=== PATIENT | female | born 1970 | race Caucasian/White ===

== ENCOUNTER 2019-09-11 17:44 | Emergency (ER) | payer OTHER, SELFPAY ==
--- NOTE | ~2019-09-11 | XR_ITS ---
XR finger 3rd RT min 2V 09/11/2019 18:10 Indication: Right third finger pain Procedure: 4 views right third finger Comparison: No prior studies for comparison. Findings: There is a fracture of the right third distal phalangeal tuft with ventral displacement. Th ere is soft tissue swelling. No foreign bodies. No other fracture. Impression: 1: Fracture right third distal phalangeal tuft with ventral displacement. Reviewed, dictated and finalized at location A. Impression: 1: Fracture right third distal phalangeal tuft with ventral displacement.
[2019-09-11 17:48] VITALS: BP 123/88; PULSE 117; RESP 18; TEMP 36.2; O2SAT 96
[2019-09-11] MEDS: ceFAZolin SODIUM 1 GM VIAL IM (18:22)
[2019-09-11] MEDS: TETANUS,DIPHTHERIA,AC PERTUSSIS ADULT (0.5 ML) BOOSTRIX IM (18:22)
--- NOTE | 2019-09-11 19:29 | ED.GENADULT ---
HPI - General Adult General Chief complaint: Wound/Laceration Stated complaint: hand vs power window Time Seen by Provider: 09/11/19 17:57 Source: patient and family Mode of arrival: ambulatory Limitations: no limitations History of Present Illness HPI narrative: Patient is a 48-year-old female who presents with partial amputation of the distal phalanx of the right middle finger occurred just prior to arrival had the finger caught in a window at the time patient notes moderate aching pain upon presentation notes her tetanus not to be up-to-date patient notes moderate aching pain worse with touch and activity denies radicular symptoms or paresthesias denies other injuries or complaints is noted and is resting in the room in mild pain distress upon arrival Related Data Allergies Allergy/AdvReac Type Severity Reaction Status Date / Time Penicillins Allergy Mild RASH Verified 09/11/19 17:45 Review of Systems Review of Systems: All systems reviewed & are unremarkable except as noted in HPI and below PMFSH Social History Social History Gender identity (if verbalized by the patient): Female Exam Narrative: Exam Narrative: GENERAL: Well-appearing, well-nourished, and in no acute distress. HEAD: Normocephalic, atraumatic. EYES: PERRLA and EOMI. ENT: Nares clear, no rhinorrhea or epistaxis. Mucous membranes moist. EXTREMITIES: Normal range of motion. No edema. Partial amputation of the distal phalanx right middle digit SKIN: Warm, dry, no rash. NEURO: No focal deficits. Alert and oriented x3. Neurovascularly intact PSYCH: Normal mood and affect. Course Course Emergency Course: Patient's wound was closed in the emergency department placed in a metal finger splint neurovascularly intact pre-and post procedure patient was given antibiotic pain management and tetanus in the emergency department discussion was made with hand surgeon to ensure follow-up Consultations Consultation #1: Case discussed with plastic surgery to ensure follow-up in clinic Date: 09/11/19 Time: 20:00 Vital Signs Vital signs: Vital Signs Temperature 97.2 F L 09/11/19 17:48 Pulse Rate 117 H 09/11/19 17:48 Respiratory Rate 18 09/11/19 17:48 Blood Pressure 123/88 09/11/19 17:48 Pulse Oximetry 96 09/11/19 17:48 Temperature 97.2 F L 09/11/19 17:48 Pulse Rate 117 H 09/11/19 17:48 Respiratory Rate 18 09/11/19 17:48 Blood Pressure 123/88 09/11/19 17:48 Pulse Oximetry 96 09/11/19 17:48 Procedures Laceration Laceration 1: Date: 09/11/19 Time: 20:00 Site: upper extremity Side (If applicable): right Size (cm): 2.5 Description: irregular Depth: simple, single layer Local Anesthetic: lidocaine 1% Pre-repair: wound explored, irrigated and irrigated extensively ====== Skin Level ====== Skin layer closed with: nylon Size (cm): 5-0 Number of sutures: 5 Technique: simple, interrupted ====== Subcutaneous Layer ====== ====== Muscle Layer ====== ====== Tendon Layer ====== Dressing: Antibiotic ointment nonadhesive 4 x 4 and Coban placed post procedure with metal finger splint Medical Decision Making MDM Narrative Medical decision making narrative: Patients injury or pain is consistent with musculoskeletal etiology. No signs of neurological or vascular compromise on exam. Compartments and tisues are soft without signs of compartment syndrome. Pain is felt appropriate for further evaluation on an outpatient basis. Finger repaired in the emergency department placed in metal finger splint after closure Vital Signs Vital Signs: Vital Signs Temperature 97.2 F L 09/11/19 17:48 Pulse Rate 117 H 09/11/19 17:48 Respiratory Rate 18 09/11/19 17:48 Blood Pressure 123/88 09/11/19 17:48 Pulse Oximetry 96 09/11/19 17:48 Temperature 97.2 F L 09/11/19 17:48 Pul
[2019-09-11 20:19] VITALS: BP 129/63; PULSE 89; RESP 18; TEMP 36.3; O2SAT 96
== END 2019-09-11 20:19 | disposition home or self-care (01) ==
PROVIDERS: Emergency Provider Emergency Medicine
DX: S62.632B Displaced fracture of distal phalanx of right middle finger, initial encounter for open fracture (principal); W23.0XXA Caught, crushed, jammed, or pinched between moving objects, initial encounter; Z23 Encounter for immunization
CPT/HCPCS: 12001; 29130; 73140; 90471; 90715; 96372; 99284; A9270; J0690

== ENCOUNTER 2023-04-09 17:03 | Emergency (ER) | payer OTHER, SELFPAY ==
[2023-04-09] VITALS (13 sets, daily range): BP systolic 139–159; BP diastolic 69–84; PULSE 110–134; RESP 15–32; TEMP 37.1–37.7; O2SAT 91–95
--- NOTE | ~2023-04-09 | XR_ITS ---
EXAMINATION: XR chest 2V DATE: 04/09/2023 17:47 INDICATION: Asthma. Congestion. TECHNIQUE: Frontal and lateral views of the chest were obtained. COMPARISON: Chest 2 views 10/19/2003, CT abdomen and pelvis 11/21/2017 FINDINGS: There is mild atelectasis at left lung base. No pleural effusion or pneumothorax. The heart size is normal. Surgical clips in the right upper quadrant are likely from cholecystectomy. There is a moderate-sized hiatal hernia. IMPRESSION: 1. Mild atelectasis at left lung base. 2. Moderate-sized hiatal hernia. Reviewed, dictated and finalized at location E. [facility] [employer] [employer]
[2023-04-09 17:55] LABS: Influenza A QL RT-PCR Negative (Negative); Influenza B QL RT-PCR Negative (Negative); RSV RNA, RT-PCR Negative (Negative); SARS-CoV-2 RNA PCR Negative (Negative)
--- NOTE | 2023-04-09 18:39 | ED.ASTHMA ---
HPI - Asthma General Chief Complaint: Asthma Stated Complaint: Asthma Time Seen by Provider: 04/09/23 18:21 Source: patient and family Limitations: no limitations History of Present Illness HPI Narrative: Patient is a 52-year-old female presents to the emergency department accompanied by her significant other for an asthma flare up. Patient states she started having a cough approximately 2 days ago in addition to some nasal congestion and has been coughing up some green sputum with this and then last night she felt like he was difficult to breathe as she took a breathing treatment which show to then again woke up feeling the same and took another breathing treatment this morning and came to the hospital as things were not resolving. Patient denies any history of intubation, ICU admission, requirement of noninvasive positive pressure ventilation. Patient denies ever coming to the hospital for asthma exacerbation in the past that she is typically able controlled with her nebulizer treatments at home. Patient admits to allergy testing in the past denies any new exposures to allergens. Patient admits to sick contacts and her significant other having similar symptoms of upper respiratory infection. Patient denies any diarrhea, bloody bowel movements, urinary discomfort, abdominal pain, chest discomfort, fever, sore throat, recent injuries, new or change medications. Patient states that her pulse oximetry typically runs low from 91 to 94 at baseline. Related Data Allergies Allergy/AdvReac Type Severity Reaction Status Date / Time Penicillins Allergy Mild RASH Verified 09/11/19 17:45 Review of Systems Review of Systems: A 10 system review of systems was completed on the patient and is negative except for what is stated in the HPI. Nursing and ancillary documentation was reviewed. [facility] Social History Social History Gender identity (if verbalized by the patient): Female Comments At time of signature, I have reviewed and agree with nursing past medical, surgical, social and family history unless otherwise noted. Please see the nursing chart for further information. There is no relevant family history pertinent to the presenting complaint. Exam Narrative: CONST: No acute distress. Well nourished. HENMT: Head is normocephalic and atraumatic. Moist mucous membranes. No posterior oropharynx erythema. Bilateral nasal congestion. EYES: No conjunctival icterus, injection, or pallor. PERRL. NECK: No meningeal signs. No palpable cervical lymphadenopathy. RESP: Able to speak in full sentences. Mild tachypnea. No accessory muscle uses for ventilation. Diffuse expiratory wheezes in all lung jordan with a prolonged expiratory phase. No focal adventitious breath sounds. No stridor. CARDIO: Tachycardic rate. Regular rhythm. 2+ DP and radial pulses bilaterally. GI: Nondistended. No tenderness to palpation. Soft. : No CVA tenderness to palpation. SKIN: No rashes or lesions noted on exposed skin. NEURO: Oriented x3. Moves all extremities. EXTREM/MSK/BACK: No pedal edema. PSYCH: Normal affect. Course Vital Signs Vital signs: Vital Signs Temperature 98.8 F 04/09/23 17:06 Pulse Rate 116 H 04/09/23 17:06 Respiratory Rate 20 04/09/23 17:06 Blood Pressure 147/84 H 04/09/23 17:06 Pulse Oximetry 95 04/09/23 17:06 Oxygen Delivery Room Air 04/09/23 17:06 Temperature 99.9 F H 04/09/23 18:11 Pulse Rate 134 H 04/09/23 20:29 Respiratory Rate 23 H 04/09/23 20:29 Blood Pressure 139/69 04/09/23 20:03 Pulse Oximetry 91 04/09/23 20:03 Oxygen Delivery Room Air 04/09/23 18:09 MDM - Asthma MDM Narrative Medical decision making narrative: Patient presents with the above complaint. Initial vitals are remarkable for Tachycardia. Physical examination as noted above. Plan discussed: laboratory analysis, [place] breathing treatme
[2023-04-09] MEDS: methylPREDNISolone SOD SUCC 40 MG VIAL 100 MG IV PUSH (18:54)
[2023-04-09] MEDS: MAGNESIUM SULF 2 GM/WATER 50ML 2 GM/50 ML BAG IVPB (18:55)
[2023-04-09] MEDS: IPRATROPIUM 0.5 MG/ALBUTEROL SULFATE 2.5 MG AMPUL.NEB 3 ML INHALATION ×3 (19:05→20:12)
[2023-04-09] MEDS: SODIUM CHLORIDE 0.9% IV 1,000 ML 999 ML IV CONT (20:02)
[2023-04-09 20:19] LABS: Basophils Absolute Auto 0.1 K/mm3 (0.0-0.1); Basophils Percent Auto 0.8 % (0.2-1.2); Eosinophils Absolute Auto 0.4 K/mm3 (0-0.3); Hematocrit 41.7 % (37.0-47.0); Hemoglobin 13.4 g/dL (12.0-15.0); Immature Granulocyte Absolute 0.03 K/mm3 (0.00-0.031); Immature Granulocyte Percent A 0.2 % (0-0.5); Lymphocytes Absolute Auto 3.55 K/mm3 (0.9-3.2); Lymphocytes Percent Auto 26.9 % (18.3-44.2); Mean Corpuscular HGB Conc 32.1 g/dl (32-36); Mean Corpuscular Hemoglobin 27.2 pg (26-34); Mean Corpuscular Volume 84.8 fl (80-100); Mean Platelet Volume 11.6 fl (7.4-10.4); Monocytes Absolute Auto 0.6 K/mm3 (0.1-0.6); Monocytes Percent Auto 4.3 % (2.6-8.5); Neutrophils Absolute Auto 8.6 K/mm3 (1.3-6.7); Neutrophils Percent Auto 64.8 % (45.5-73.1); Platelet Count Result 266 k/mm3 (150-375); Red Blood Count 4.92 M/mm3 (4.2-5.4); Red Cell Distribution Width 17.2 % (11.5-14.5); White Blood Count 13.2 K/mm3 (4.5-10.0)
[2023-04-09 20:31] LABS: Alanine Aminotransferase 24 U/L (6-35); Albumin Level 4.2 g/dL (3.5-5.1); Alkaline Phosphatase 154 U/L (38-126); Anion Gap 7 mmol/L (8-16); Aspartate Amino Transferase 29 U/L (14-36); Bilirubin,Total 0.5 mg/dL (0.2-1.3); Blood Urea Nitrogen 13 mg/dL (7-17); Carbon Dioxide 24 mmol/L (22-30); Chloride 105 mmol/L (98-107); Estimated CRCL calculation 133 ml/min; Estimated Glomerular Filt Rate > 60; Glucose 143 mg/dL (65-110); Potassium 3.3 mmol/L (3.4-5.0); Sodium 136 mmol/L (137-145)
[2023-04-09] MEDS: ALBUTEROL SULFATE NEB 2.5 MG/3 ML INH INHALATION (20:31)
[2023-04-09] MEDS: POTASSIUM CHLORIDE 20 MEQ PACKET (FOR LIQUID) 40 MEQ PO (20:50)
== END 2023-04-09 21:24 | disposition home or self-care (01) ==
PROVIDERS: Emergency Medicine; Emergency Provider Student in an Organized Health Care Education/Training Program; PCP Nurse Practitioner
DX: J45.901 Unspecified asthma with (acute) exacerbation (principal); J06.9 Acute upper respiratory infection, unspecified; E87.6 Hypokalemia; Z20.822 Contact with and (suspected) exposure to COVID-19; K44.9 Diaphragmatic hernia without obstruction or gangrene
CPT/HCPCS: 36415; 71046; 80053; 85025; 87637; 94640; 96361; 96365; 96375; 99285; A9270; J2920; J3475; J7030